=== PATIENT | female | born 2000 | race Caucasian/White ===

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

== ENCOUNTER → 2021-03-25 11:55 | Outpatient (BNVA) | payer MEDICAID, SELFPAY | PROVIDERS: PCP Family Medicine; Visit Provider Obstetrics & Gynecology | DX: N93.9 Abnormal uterine and vaginal bleeding, unspecified (principal) | CPT/HCPCS: 84439; 84443; 84481; 84702; 85025 ==

== ENCOUNTER → 2021-03-26 15:53 | Outpatient (BNVA) | payer MEDICAID, SELFPAY | PROVIDERS: PCP Family Medicine; Visit Provider Obstetrics & Gynecology | DX: N93.9 Abnormal uterine and vaginal bleeding, unspecified (principal) | CPT/HCPCS: 76830 ==

== ENCOUNTER → 2021-04-07 10:05 | Outpatient (BNVA) | payer MEDICAID, SELFPAY | PROVIDERS: PCP Family Medicine; Referring Provider Obstetrics & Gynecology; Visit Provider Internal Medicine | DX: E05.90 Thyrotoxicosis, unspecified without thyrotoxic crisis or storm (principal); R74.01 Elevation of levels of liver transaminase levels; E11.9 Type 2 diabetes mellitus without complications; N93.9 Abnormal uterine and vaginal bleeding, unspecified | CPT/HCPCS: 99204 ==

== ENCOUNTER 2021-04-07 11:55 | Outpatient (CLI) | payer MEDICAID, SELFPAY ==
[2021-04-07 13:00] LABS: Alanine Aminotransferase 106 U/L (0-33); Albumin Level 4.4 g/dL (3.5-5.2); Alkaline Phosphatase 60 IU/L (35-105); Anion Gap 18.8 (5-19); Aspartate Amino Transferase 76 U/L (0-32); Blood Urea Nitrogen 7 mg/dL (6-20); Calcium 10.1 mg/dL (8.5-10.5); Carbon Dioxide 23 mmol/L (22-29); Chloride 99 mmol/L (98-107); Free T4 Free Thyroxine 1.16 ng/dL (0.82-1.77); Globulin 3.7 g/dL (1.3-4.6); Glomerular Filtration Rate 127.5 mL/min (90-130); Glucose 101 mg/dL (65-115); Osmolality Calculated 282 mOsm/kg (285-295); Potassium 3.8 mmol/L (3.5-5.1); Sodium 137 mmol/L (136-145); Thyroid Stimulating Hormone 2.69 uIU/mL (0.27-4.20); Total Bilirubin 0.3 mg/dL (0.15-1.2); Total Protein 8.1 g/dL (6.6-8.7)
[2021-04-08 08:47] LABS: T3 Total 164 ng/dL (86-192)
[2021-04-08 14:37] LABS: Thyroglobulin AB 3 IU/mL (< or = 1); Thyroid Peroxidase Antobodies 30 IU/mL (<9)
[2021-04-12 16:03] LABS: TSH Receptor Binding Antibody <1.00 IU/L (< OR = 2.00)
== END 2021-04-07 11:56 | disposition home or self-care (01) ==
LOC: LAB 12:02
PROVIDERS: PCP Family Medicine; Visit Provider Internal Medicine
DX: E05.90 Thyrotoxicosis, unspecified without thyrotoxic crisis or storm (principal); E11.9 Type 2 diabetes mellitus without complications; R74.01 Elevation of levels of liver transaminase levels
CPT/HCPCS: 36415; 80053; 83516; 84439; 84443; 84480; 86376; 86800

== ENCOUNTER 2021-04-29 09:04 | Outpatient (CLI) | payer MEDICAID, SELFPAY ==
[2021-04-29 09:56] LABS: Free T4 Free Thyroxine 0.65 ng/dL (0.82-1.77); Thyroid Stimulating Hormone 74.14 uIU/mL (0.27-4.20)
[2021-04-30 11:19] LABS: T3 Total 107 ng/dL (86-192)
== END 2021-04-29 09:05 | disposition home or self-care (01) ==
PROVIDERS: PCP Family Medicine; Visit Provider Internal Medicine
DX: E05.90 Thyrotoxicosis, unspecified without thyrotoxic crisis or storm (principal); E11.9 Type 2 diabetes mellitus without complications; R74.01 Elevation of levels of liver transaminase levels
CPT/HCPCS: 36415; 84439; 84443; 84480

== ENCOUNTER → 2021-05-07 11:08 | Outpatient (BNVA) | payer MEDICAID, SELFPAY | PROVIDERS: PCP Family Medicine; Visit Provider Internal Medicine | DX: E06.3 Autoimmune thyroiditis (principal); E03.8 Other specified hypothyroidism; E04.9 Nontoxic goiter, unspecified; R74.01 Elevation of levels of liver transaminase levels | CPT/HCPCS: 99214 ==

== ENCOUNTER 2021-05-07 11:52 | Outpatient (CLI) | payer MEDICAID, SELFPAY ==
[2021-05-07 16:03] LABS: Free T4 Free Thyroxine 0.75 ng/dL (0.82-1.77)
== END 2021-05-07 11:53 | disposition home or self-care (01) ==
PROVIDERS: PCP Family Medicine; Visit Provider Internal Medicine
DX: E03.8 Other specified hypothyroidism (principal); E06.3 Autoimmune thyroiditis
CPT/HCPCS: 84439

== ENCOUNTER 2021-05-27 09:00 | Emergency (ER) | payer MEDICAID, SELFPAY ==
[2021-05-27 09:08] VITALS: BP 134/89; PULSE 92; RESP 16; TEMP 36.8; O2SAT 100; BMI 38.4
--- NOTE | 2021-05-27 11:46 | US_ITS ---
WS: [id number] Exam: US transvaginal [id number] Date/Time of Exam: 05/27/2021 12:13 PM Reason For Exam: pelvic pain/positive home preg No sign of intrauterine . The uterus is not enlarged and measures 3.3 x 4.4 x 7.3 cm. Endome trial thickness was 4 mm. Subcentimeter tiny follicle cysts in both ovaries. The ovaries demonstrate normal vascularity with color-flow Doppler. The left ovary measures 3.15 x 1.73 x 2.9 cm. The right o vary measures 3 x 2.4 x 2.5 cm. No adnexal mass or abnormal free fluid collection in the pelvis. US/US transvaginal [id number] IMPRESSION: 1. No intrauterine identified. 2. Sonographically normal-appearing uterus and ovaries. 3. No adnexal mass or abnormal free fluid collection. This exam would not completely exclude very early intrauterine or ect opic .
--- NOTE | 2021-05-27 11:53 | ED_ITS ---
HPI - Female Genitourinary General: Chief complaint: Urogenital-Female Stated complaint: CRAMPING & PELVIC PAIN/PREG Time Seen by Provider: 05/27/21 09:18 History of Present Illness: HPI Narrative: 21-year-old female who presents to the emergency room with complaints of dysuria and urgency for the last 2 days. She is also had some spotting. She states her last menstrual cycle was 922 and she has a positive test 2 days ago. MD elicited complaint: UTI Onset (ago): minute(s) Severity: mild Quality of pain: cramping (R pelvic pain) Exacerbating factors: none Relieving factors: none Associated symptoms: Deny abdominal pain, short of breath, fevers/chills, headache(s), nausea, rash, seizures, syncope, vaginal bleeding, vaginal discharge or weakness Treatment prior to arrival: none Patient : Yes Possible : at home test positive Date of Last Menstrual Period: 03/12/21 Review of Systems Card: Denies: syncope GI: Denies: abdominal pain or nausea : Denies: vaginal discharge Neuro: Denies: headache(s) PFSH ED PFSH: Medical History Asthma Diagnosed with asthma as a child, denies hospitalizations or intubations. symptoms are worse in spring and summer last had to use an inhaler when she was 14 years old. Diabetes mellitus Diagnosed in 2020 with an elevated hemoglobin A1c. Started on Metformin being managed by primary care provider. 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 Migraine Reports having migraine headaches since the age of 19-denies auras. This is managed by her primary care provider Dr. Nunez No pertinent past medical history Denies seizures, DVT/PE, hypertension PMD: Dr. Nunez Surgical History H/O local excision of skin lesion (08/28/20) Bilateral axilla for hidradenitis performed by Dr. Martinez at [facility] S/P adenoidectomy Adenoidectomy and tubes in her ears at the age of 11 Family History Mother Hypertension Grandmother Hypertension Maternal Heart disease maternal Grandfather Diabetes maternal Thyroid condition maternal Denies family history of Colon cancer Ovarian cancer Hyperlipidemia Breast cancer Uterine cancer Female Reproductive History: Date of last menstrual period: 03/12/21 Physical Exam Const: COMMON NORMALS: no acute distress GENERAL APPEARANCE: cooperative and comfortable ORIENTATION/CONSCIOUSNESS: Yes awake, Yes oriented to person, Yes oriented to place and Yes oriented to time HENMT: COMMON NORMALS: normocephalic, atraumatic and hearing grossly normal bilaterally HEAD & SCALP: normocephalic and atraumatic Resp: COMMON NORMALS: normal respiratory effort, No retractions, No use of accessory muscles and clear to auscultation bilaterally AUSCULTATION: clear to auscultation bilaterally Cardio: COMMON NORMALS: regular rate, regular rhythm and No murmurs present (Cardio) RATE: regular rate RHYTHM: regular rhythm GI: COMMON NORMALS: Soft to palpation and No hepatosplenomegaly present AUSCULTATION: Yes normoactive bowel sounds PALPATION: Yes Soft to palpation, No Tenderness to palpation present (GI), No Guarding due to palpation present (GI) and Yes No hepatosplenomegaly present : COMMON NORMALS: Yes no CVA tenderness BLADDER/KIDNEY EXAM: Yes no CVA tenderness SPECULUM EXAM - VAGINA: No vaginal bleeding OB/EXTERNAL & SPECULUM: No vaginal bleeding Back/Pelvis: COMMON NORMALS: no CVA tenderness Extremity: COMMON NORMALS: normal to inspection, capillary refill normal, no clubbing, cyanosis or edema, no calf tenderness and no pedal edema Neuro: SENSORIUM/ORIENTATION: Yes oriented to person, Yes oriented to place and Yes oriented to time Skin: COMMON NORMALS: no rashes or lesions noted GENERAL SKIN EXAM: no rashes or lesions noted Course Vital Signs: Vital signs: Vital Signs Temperature 98.2 F 05/27/21 09:08 Pulse Rate 87 05/27/21 13:22 Respiratory Rate 16 05/27/21 13:22 Blood Pressure 128/85 05/27/21 13:22 Pulse Oximetry 98 05/27/21 13:22 MDM - Female MDM Narrative: Medical decision making narrative: Simple cystitis on UA white counts not elevated beta-hCG is undetectable and her pelvic ultrasound is unremarkable. Discharge home follow-up with primary care started on oral antibiotics if worsens return Lab Data: Labs: Lab Results 05/27/21 05/27/21 05/27/21 11:28 11:44 11:44 WBC 11.7 10^3/uL 10^3 /uL (4.5-13.0) RBC 5.08 10^6/uL 10^6 /uL (4.1-5.3) Hgb 14.0 g/dL g/dL (11.5-15.3) Hct 43.9 % % (37.0-47.0) MCV 86.4 fl fl (81-99) MCH 27.6 pg L pg (28.0-34.0) MCHC 31.9 g/dL g/dL (30.0-36.0) RDW 13.6 % % (12.1-15.1) Plt Count 411 10^3/cmm H 10 ^3/cmm (130-400) MPV 11.3 fL H fL (7.4-10.4) Neut % (Auto) 76.0 % % Lymph % (Auto) 18.9 % % [place] % (Auto) 3.7 % % Eos % (Auto) 0.3 % % Baso % (Auto) 0.8 % % Neut # (Auto) 8.85 10^3/uL H 10 ^3/uL (1.8-8.0) Lymph # (Auto) 2.2 10^3/uL 10^3/ uL (1.5-6.5) [place] # (Auto) 0.4 10^3/uL 10^3/ uL (0.2-0.9) Eos # (Auto) 0.0 10^3/uL 10^3/ uL (0.0-0.8) Baso # (Auto) 0.1 10^3/uL 10^3/ uL (0.0-0.1) Nucleated RBC % (a uto) 0 % % Nucleated RBCs # 0.0 /100WBC /100W BC Sodium 136 mmol/L mmol/L (136-145) Potassium 4.3 mmol/L mmol/L (3.5-5.1) Chloride 98 mmol/L mmol/L (98-107) Carbon Dioxide 22 mmol/L mmol/L (22-29) Anion Gap 20.3 H (5-19) BUN 7 mg/dL mg/dL (6-20) Creatinine 0.5 mg/dL mg/dL (0.5-0.9) GFR Calculation 157.3 mL/min H mL /min (90-130) Glucose 89 mg/dL mg/dL (65-115) Calculated Osmolal ity 279 mOsm/kg L mOs m/kg (285-295) Calcium 9.3 mg/dL mg/dL (8.5-10.5) Total Bilirubin 0.4 mg/dL mg/dL (0.15-1.2) AST 88 U/L H U/L (0-32) ALT 71 U/L H U/L (0-33) Alkaline Phosphata se 58 IU/L IU/L (35-105) Total Protein 7.5 g/dL g/dL (6.6-8.7) Albumin 4.3 g/dL g/dL (3.5-5.2) Globulin 3.2 g/dL g/dL (1.3-4.6) HCG, Qual Urine Color Yellow (Yellow) Urine Appearance Cloudy (CLEAR) Urine pH 5 (5-7) Ur Specific [place] y 1.020 (1.005-1.030) Urine Protein Neg (Negative) Urine Glucose (UA) Norm (Normal) Urine Ketones Negative (Negative) Urine Blood 3+ H (Negative) Urine Nitrate Negative (Negative) Urine Bilirubin Neg (Negative) Urine Urobilinogen 1 mg/dL H mg/dL (Negative) Ur Leukocyte Inna ase 2+ H (Negative) Urine RBC 0-4 /hpf H /hpf (0-2) Urine WBC 25-40 /hpf H /hpf (0-5) Ur Squamous Epith Cells 15-25 /hpf H /hpf (0-5) Amorphous Sediment Not Reportable Urine Bacteria 2+ /hpf H /hpf (NONE) 05/27/21 11:44 WBC RBC Hgb Hct MCV MCH MCHC RDW Plt Count MPV Neut % (Auto) Lymph % (Auto) [place] % (Auto) Eos % (Auto) Baso % (Auto) Neut # (Auto) Lymph # (Auto) [place] # (Auto) Eos # (Auto) Baso # (Auto) Nucleated RBC % (a uto) Nucleated RBCs # Sodium Potassium Chloride Carbon Dioxide Anion Gap BUN Creatinine GFR Calculation Glucose Calculated Osmolal ity Calcium Total Bilirubin AST ALT Alkaline Phosphata se Total Protein Albumin Globulin HCG, Qual Negative (Negative) Urine Color Urine Appearance Urine pH Ur Specific Gravit y Urine Protein Urine Glucose (UA) Urine Ketones Urine Blood Urine Nitrate Urine Bilirubin Urine Urobilinogen Ur Leukocyte Inna ase Urine RBC Urine WBC Ur Squamous Epith Cells Amorphous Sediment Urine Bacteria Discharge Plan Discharge Patient Disposition: Home Clinical Impression: Cystitis Condition: Stable Prescriptions: New Macrobid 100 mg capsule 100 mg PO BID 7 Days Qty: 14 RF: 0 No Action tizanidine 4 mg capsule 4 mg PO BID PRN (Reason: Spasms) RF: 0 amitriptyline 25 mg tablet 25 mg PO BEDTIME PRN (Reason: Sleep) RF: 0 [place]a Fe 1.5/30 (28) 1.5 mg-30 mcg (21)/75 mg (7) tablet 1 tab PO DAILY RF: 0 metformin 500 mg tablet extended release 24 hr 500 mg PO QAM RF: 0 Junel FE 07/10 (28) 1 mg-20 mcg (21)/75 mg (7) tablet 1 tab PO DAILY RF: 0 levothyroxine 88 mcg tablet 88 mcg PO QAM RF: 0 Discharge Orders: Discharge ED (Routine); Ordered 05/27/21 Ordered By: Josiah Grande Referrals: Sebastian Nunez MD [Primary Care Provider] - Discharge Diet: Usual diet Discharge Activity: Increase activity as tolerated Patient Instructions: Opioid Safety Coding Level of Care Code ED Orthopedic Radiologic Technologist for Matteo Valerio Exam Problem Focused
[2021-05-27 12:15] LABS: Basophils # 0.1 10^3/uL (0.0-0.1); Basophils % 0.8 %; Eosinophils % 0.3 %; Hematocrit 43.9 % (37.0-47.0); Lymphocytes # 2.2 10^3/uL (1.5-6.5); Lymphocytes % 18.9 %; Mean Corpuscular HGB Conc 31.9 g/dL (30.0-36.0); Mean Corpuscular Hemoglobin 27.6 pg (28.0-34.0); Mean Corpuscular Volume 86.4 fl (81-99); Mean Platelet Volume 11.3 fL (7.4-10.4); Monocytes # 0.4 10^3/uL (0.2-0.9); Monocytes % 3.7 %; Neutrophils # 8.85 10^3/uL (1.8-8.0); Nucleated Red Blood Cells % 0 %; Platelet Count 411 10^3/cmm (130-400); Red Blood Count 5.08 10^6/uL (4.1-5.3); Red Cell Distribution Width 13.6 % (12.1-15.1); White Blood Count 11.7 10^3/uL (4.5-13.0)
[2021-05-27 12:25] LABS: Urine Appearance Cloudy (CLEAR); Urine Color Yellow (Yellow)
[2021-05-27 12:26] LABS: Add Urine Microscopic? YES; Bilirubin Urine Neg (Negative); Blood Urine 3+ (Negative); Glucose Urine UA Norm (Normal); Ketones Urine Negative (Negative); Leukocyte Esterase Urine 2+ (Negative); Nitrate Urine Negative (Negative); Protein Urine Neg (Negative); RBC Urine 0-4 /hpf (0-2); Squamous Epithelial Cell Urine 15-25 /hpf (0-5); Urobilinogen Urine 1 mg/dL (Negative); WBC Urine 25-40 /hpf (0-5); pH Urine 5 (5-7)
[2021-05-27 12:26] LABS: HCG, Serum Qual Negative (Negative)
[2021-05-27 12:27] LABS: Add Urine Culture? No; Bacteria Urine 2+ /hpf
[2021-05-27 12:36] LABS: Alanine Aminotransferase 71 U/L (0-33); Albumin Level 4.3 g/dL (3.5-5.2); Alkaline Phosphatase 58 IU/L (35-105); Anion Gap 20.3 (5-19); Aspartate Amino Transferase 88 U/L (0-32); Blood Urea Nitrogen 7 mg/dL (6-20); Calcium 9.3 mg/dL (8.5-10.5); Carbon Dioxide 22 mmol/L (22-29); Chloride 98 mmol/L (98-107); Globulin 3.2 g/dL (1.3-4.6); Glomerular Filtration Rate 157.3 mL/min (90-130); Glucose 89 mg/dL (65-115); Osmolality Calculated 279 mOsm/kg (285-295); Potassium 4.3 mmol/L (3.5-5.1); Sodium 136 mmol/L (136-145); Total Bilirubin 0.4 mg/dL (0.15-1.2); Total Protein 7.5 g/dL (6.6-8.7)
[2021-05-27 13:22] VITALS: BP 128/85; PULSE 87; RESP 16; O2SAT 98
== END 2021-05-27 13:24 | disposition home or self-care (01) ==
PROVIDERS: Emergency Provider Family Medicine; PCP Family Medicine
DX: N30.90 Cystitis, unspecified without hematuria (principal); E11.9 Type 2 diabetes mellitus without complications
CPT/HCPCS: 76830; 80053; 81001; 84702; 84703; 85025; 99283

== ENCOUNTER 2022-01-03 15:01 | Emergency (ER) | payer MEDICAID, SELFPAY ==
[2022-01-03 15:18] VITALS: BP 153/92; PULSE 109; RESP 16; TEMP 36.5; O2SAT 97
--- NOTE | 2022-01-03 18:08 | W.ED.FEMALGU ---
HPI - Female Genitourinary General: Chief complaint: Vaginal Bleeding Stated complaint: passed a large bloodclot Time Seen by Provider: 01/03/22 17:42 History of Present Illness: Patient is a 21-year-old female comes to the ED with abdominal pain and have a vaginal bleeding. Symptoms started today. Patient's last menstrual period was on December 10 and she usually has normal regular monthly periods. She is having heavy bleeding today but the most concerning an abnormal thing is that she has passed a couple large blood clots which is unusual for her. Patient is not currently on any control and says there is a chance that she could be . She has not taken any home test within the last couple days. She states that currently she is going through 1 heavy pad every 3-4 hours. Abdominal pain is located in the bilateral upper abdomen and it started at the same time vaginal bleeding began. Abdominal pain is described as a sharp pain and she states it is mild and does not need any pain meds. Patient endorses some dysuria. Denies any fever, nausea, vomiting, bowel symptoms or hematuria. Denies any past pregnancies. Associated symptoms: Reports abdominal pain; Deny headache(s) or nausea Date of Last Menstrual Period: 12/10/21 Review of Systems Const: Denies: fever(s), chills or fatigue Eyes: Denies: change in vision or eye discomfort ENMT: Denies: throat pain, odynophagia, nasal discharge or nasal congestion Card: Denies: chest pain, palpitations, edema, swelling of feet/ankles, dyspnea on exertion or orthopnea Resp: Denies: dyspnea, productive cough or non-productive cough GI: Reports: abdominal pain; Denies: nausea, vomiting, diarrhea, constipation or hematochezia : Reports: vaginal bleeding; Denies: flank pain, dysuria or hematuria Musc: Denies: neck pain, back pain or extremity swelling Skin/Breast: Denies: rash or new lesions Neuro: Denies: headache(s), numbness in extremities or weakness in extremities PFS ED PFSH: Medical History Asthma Diagnosed with asthma as a child, denies hospitalizations or intubations. symptoms are worse in spring and summer last had to use an inhaler when she was 14 years old. Diabetes mellitus Diagnosed in 2021 with an elevated hemoglobin A1c. Started on Metformin being managed by primary care provider. 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 Migraine Reports having migraine headaches since the age of 19-denies auras. This is managed by her primary care provider Dr. Nunez No pertinent past medical history Denies seizures, DVT/PE, hypertension PMD: Dr. Nunez Surgical History H/O local excision of skin lesion (08/28/20) Bilateral axilla for hidradenitis performed by Dr. Martinez at [facility] S/P adenoidectomy Adenoidectomy and tubes in her ears at the age of 11 Family History Mother Hypertension Grandmother Hypertension Maternal Heart disease maternal Grandfather Diabetes maternal Thyroid condition maternal Denies family history of Colon cancer Ovarian cancer Hyperlipidemia Breast cancer Uterine cancer Female Reproductive History: Date of last menstrual period: 12/10/21 Physical Exam Const: COMMON NORMALS: no acute distress, patient oriented x3 and alert GENERAL APPEARANCE: cooperative and comfortable HENMT: COMMON NORMALS: normocephalic HEAD & SCALP: normocephalic MOUTH: Normal oral and palatal mucosa present THROAT: posterior oropharynx normal and uvula midline Neck/C-Spine: COMMON NORMALS: supple GENERAL: Yes normal visual inspection Resp: COMMON NORMALS: normal respiratory effort, No retractions, No use of accessory muscles and clear to auscultation bilaterally AUSCULTATION: clear to auscultation bilaterally Cardio: COMMON NORMALS: regular rate, regular rhythm, S1 normal heart sound present, S2 normal heart sound present, No gallops present (Cardio), No clicks present (Cardio), No murmurs present (Cardio) and Peripheral pulses 2+ throughout RATE: regular rate RHYTHM: regular rhythm HEART SOUNDS: S1 normal heart sound present and S2 normal heart sound present PERIPHERAL PULSES: Peripheral pulses 2+ throughout GI: COMMON NORMALS: Normal to inspection, nondistended, normoactive bowel sounds present, Soft to palpation and no masses PALPATION: Yes Soft to palpation and Yes Tenderness to palpation present (GI) (Mild generalized abdominal tenderness) : COMMON NORMALS: Yes no CVA tenderness BLADDER/KIDNEY EXAM: Yes no CVA tenderness Back/Pelvis: COMMON NORMALS: no CVA tenderness Extremity: COMMON NORMALS: normal to inspection Neuro: COMMON NORMALS: patient oriented x3 and moves all extremities SENSORIUM/ORIENTATION: Yes alert Skin: GENERAL SKIN EXAM: dry skin Course Vital Signs: Vital signs: Vital Signs Temperature 97.7 F 01/03/22 15:18 Pulse Rate 99 01/03/22 21:24 Respiratory Rate 16 01/03/22 21:24 Blood Pressure 129/95 01/03/22 21:24 Pulse Oximetry 98 01/03/22 21:24 [facility] - Female Medical Decision Making Patient is a 21-year-old female comes to the ED with heavy vaginal bleeding. Symptoms started today. She has passed a couple large clots as well today. Denies any past pregnancies. She also endorses some mild abdominal pain as well. Last menstrual period on December 10 so she is close to the time for her to start her next menstrual period. Vitals are stable. Patient appears nontoxic and in no acute distress or pain. Rest of exam is benign. hCG negative and the rest of her labs were unremarkable. Ultrasound of pelvis showed no acute findings. Patient was diagnosed with abnormal vaginal bleeding and was discharged home. She was told to follow-up with her PCP in the next 7 to 10 days for reevaluation. Return to ED precautions given. Patient understood and agreed with plan. Lab Data I reviewed the patient's lab results. : 01/03/22 18:30 01/03/22 18:30 Radiology Impressions Pelvis Ultrasound 01/03/22 19:03 IMPRESSION: Normal ovarian arterial and venous vascular flow. No evidence ovarian torsion. IMPRESSION: 1. Grossly unremarkable endometrium. No discrete myoma or obvious sonographic signs of adenomyosis. 2. Bilateral tiny follicles which may represent normal physiologic variation versus polycystic ovary syndrome. Clinical correlation is suggested. No suspicious adnexal region masses or ovarian stromal edema/torsion on either side. Laboratory Results WBC 13.8 10^3/uL (4.5-13.0) H 01/03/22 18:30 RBC 5.42 10^6/uL (4.1-5.3) H 01/03/22 18:30 Hgb 14.6 g/dL (11.5-15.3) 01/03/22 18:30 Hct 45.4 % (37.0-47.0) 01/03/22 18:30 MCV 83.8 fl (81-99) 01/03/22 18:30 MCH 26.9 pg (28.0-34.0) L 01/03/22 18:30 MCHC 32.2 g/dL (30.0-36.0) 01/03/22 18:30 RDW 17.4 % (12.1-15.1) H 01/03/22 18:30 Plt Count 465 10^3/cmm (130-400) H 01/03/22 18:30 MPV 11.6 fL (7.4-10.4) H 01/03/22 18:30 Neut % (Auto) 70.7 % 01/03/22 18:30 Lymph % (Auto) 21.4 % 01/03/22 18:30 [place] % (Auto) 6.0 % 01/03/22 18:30 Eos % (Auto) 0.6 % 01/03/22 18:30 Baso % (Auto) 0.9 % 01/03/22 18:30 Neut # (Auto) 9.74 10^3/uL (1.8-8.0) H 01/03/22 18:30 Lymph # (Auto) 2.9 10^3/uL (1.5-6.5) 01/03/22 18:30 [place] # (Auto) 0.8 10^3/uL (0.2-0.9) 01/03/22 18:30 Eos # (Auto) 0.1 10^3/uL (0.0-0.8) 01/03/22 18: Baso # (Auto) 0.1 10^3/uL (0.0-0.1) 01/03/22 18:30 Nucleated RBC % (auto) 0 % 01/03/22 18:30 Nucleated RBCs # 0.0 /100WBC 01/03/22 18:30 Sodium Cancelled 01/03/22 18:30 Potassium Cancelled 01/03/22 18:30 Chloride Cancelled 01/03/22 18:30 Carbon Dioxide Cancelled 01/03/22 18:30 Anion Gap Cancelled 01/03/22 18:30 BUN Cancelled 01/03/22 18:30 Creatinine Cancelled 01/03/22 18:30 GFR Calculation Cancelled 01/03/22 18:30 Glucose Cancelled 01/03/22 18:30 Calculated Osmolality Cancelled 01/03/22 18:30 Calcium Cancelled 01/03/22 18:30 Total Bilirubin Cancelled 01/03/22 18:30 AST Cancelled 01/03/22 18:30 ALT Cancelled 01/03/22 18:30 Alkaline Phosphatase Cancelled 01/03/22 18:30 Total Protein Cancelled 01/03/22 18:30 Albumin Cancelled 01/03/22 18:30 Globulin Cancelled 01/03/22 18:30 Lipase Cancelled 01/03/22 18:30 HCG, Qual Negative (Negative) 01/03/22 18:30 Urine Color Red (Yellow) 01/03/22 18:30 Urine Appearance Cloudy (CLEAR) 01/03/22 18:30 Urine pH 6 (5-7) 01/03/22 18:30 Ur Specific [place] 1.025 (1.005-1.030) 01/03/22 18:30 Urine Protein 1+ (Negative) H 01/03/22 18:30 Urine Glucose (UA) Norm (Normal) 01/03/22 18:30 Urine Ketones Negative (Negative) 01/03/22 18:30 Urine Blood 3+ (Negative) H 01/03/22 18:30 Urine Nitrate Negative (Negative) 01/03/22 18:30 Urine Bilirubin 1+ (Negative) H 01/03/22 18:30 Urine Urobilinogen 1 mg/dL (Negative) H 01/03/22 18:30 Ur Leukocyte Esterase Trace (Negative) H 01/03/22 18:30 Urine RBC Too numerous to cnt /hpf (0-2) H 01/03/22 18:30 Urine WBC 5-10 /hpf (0-5) H 01/03/22 18:30 Ur Squamous Epith Cells 0-4 /hpf (0-5) H 01/03/22 18:30 Amorphous Sediment Not Reportable 01/03/22 18:30 Urine Bacteria Trace /hpf (NONE) 01/03/22 18:30 Urine Mucus 1+ /hpf 01/03/22 18:30 Discharge Plan Discharge Patient Disposition: Home Clinical Impression: Abnormal vaginal bleeding Condition: Stable Prescriptions: No Action tizanidine 4 mg capsule 4 mg PO BID PRN (Reason: Spasms) 0RF amitriptyline 25 mg tablet 25 mg PO BEDTIME PRN (Reason: Sleep) 0RF Junel FE 07/10 (28) 1 mg-20 mcg (21)/75 mg (7) tablet 1 tab PO DAILY Qty: 84 0RF metformin 500 mg tablet extended release 24 hr 500 mg PO QAM 0RF levothyroxine 88 mcg tablet 88 mcg PO QAM 0RF Rx Instructions: one hour before any medicine or food. Discharge Orders: Discharge ED (Routine); Ordered 01/03/22 Ordered By: Charlie Burks Referrals: Sebastian Nunez MD [Primary Care Provider] - Discharge Diet: Regular Discharge Activity: Increase activity as tolerated Activity Restrictions/Additional Instructions: Follow-up with medical provider as directed in the next 5 to 7 days for reevaluation. Take [id number] Tylenol or Motrin for any pain. Return to the ER or your medical provider if condition worsens. Please read and understand discharge instructions. Thank you for choosing [facility] for your healthcare needs today. Please realize this is an emergency room and that we are providing you with a medical screening exam and this may not be complete and all inclusive of all the testing and or work up that you may need to determine your ailment or severity of your illness. It is very important that you follow up as instructed or that you return to the Emergency Department should you have concerns or if your condition changes or worsens in any way. Coding Level of Care Code ED Steam Box Tender for Matteo Valerio Exam Comprehensive
[2022-01-03 18:40] LABS: Basophils # 0.1 10^3/uL (0.0-0.1); Basophils % 0.9 %; Eosinophils # 0.1 10^3/uL (0.0-0.8); Eosinophils % 0.6 %; Hematocrit 45.4 % (37.0-47.0); Hemoglobin 14.6 g/dL (11.5-15.3); Lymphocytes # 2.9 10^3/uL (1.5-6.5); Lymphocytes % 21.4 %; Mean Corpuscular HGB Conc 32.2 g/dL (30.0-36.0); Mean Corpuscular Hemoglobin 26.9 pg (28.0-34.0); Mean Corpuscular Volume 83.8 fl (81-99); Mean Platelet Volume 11.6 fL (7.4-10.4); Monocytes # 0.8 10^3/uL (0.2-0.9); Neutrophils # 9.74 10^3/uL (1.8-8.0); Neutrophils % 70.7 %; Nucleated Red Blood Cells % 0 %; Platelet Count 465 10^3/cmm (130-400); Red Blood Count 5.42 10^6/uL (4.1-5.3); Red Cell Distribution Width 17.4 % (12.1-15.1); White Blood Count 13.8 10^3/uL (4.5-13.0)
[2022-01-03 18:50] LABS: HCG Qualitative Urine. Negative (Negative)
[2022-01-03 18:54] LABS: Bilirubin Urine 1+ (Negative); Blood Urine 3+ (Negative); Glucose Urine UA Norm (Normal); Ketones Urine Negative (Negative); Leukocyte Esterase Urine Trace (Negative); Nitrate Urine Negative (Negative); Protein Urine 1+ (Negative); Specific Gravity, Urine 1.025 (1.005-1.030); Urine Appearance Cloudy (CLEAR); Urine Color Red (Yellow); Urobilinogen Urine 1 mg/dL (Negative); pH Urine 6 (5-7)
[2022-01-03 18:55] LABS: Add Urine Microscopic? YES; RBC Urine TOO NUMEROUS TO CNT /hpf (0-2)
[2022-01-03 18:56] LABS: Bacteria Urine TRACE /hpf; Mucus Urine 1+ /hpf; Squamous Epithelial Cell Urine 0-4 /hpf (0-5)
[2022-01-03 18:57] LABS: Add Urine Culture? Yes
--- NOTE | 2022-01-03 19:03 | USR_ITS ---
PROCEDURE INFORMATION: Exam: US Duplex Artery and Vein of the Abdominal and/or Reproductive Organs. Complete Ovaries Exam date and time: 01/03/2022 7:47 PM Age: 21 years old Clinical indication: Abdominal pain; Lower abdomen; Additional info: Heavy bleeding and passing large clots, pelvic tenderness TECHNIQUE: Imaging protocol: Real-time duplex ultrasound scan of the arterial and venous flow with color Doppler flow and spectral waveform analysis with image documentation. Complete duplex exam focused on the ovaries. Duplex exam was added to evaluate for torsion and other vascular conditions. COMPARISON: US abdomen complete* [id number] 04/01/2020 11:03 PM FINDINGS: Right ovary/adnexa: Normal duplex of the ovary. Normal Doppler waveforms and color flow. Arterial and venous flow are normal. No evidence of ovarian torsion. Left ovary/adnexa: Normal duplex of the ovary. Normal Doppler waveforms and color flow. Arterial and venous flow are normal. No evidence of ovarian torsion. PROCEDURE INFORMATION: Exam: US Pelvis, Transvaginal Exam date and time: 01/03/2022 7:47 PM Age: 21 years old Clinical indication: Abdominal pain; Lower abdomen; Additional info: Heavy bleeding and passing large clots, pelvic tenderness TECHNIQUE: Imaging protocol: Real-time transvaginal pelvic ultrasound with image documentation. Transvaginal imaging was used for better evaluation of the endometrium, adnexa, and/or cervix. COMPARISON: US transvaginal [id number] 05/27/2021 12:21 PM FINDINGS: Uterus: Uterus is anteverted measuring 7.4 by 3.2 x 4.6 cm. Endometrium measures up to 6 mm in thickness with no obvious discrete mass, or debris/fluid. Unremarkable cervix. No discrete uterine myoma or obvious imaging signs of adenomyosis. Right ovary/adnexa: Right ovary measures 4.1 by 3 x 3 cm. Bilateral tiny ovarian follicles with no dominant features, which may represent normal physiologic variation versus polycystic ovary syndrome. Clinical correlation is suggested. No suspicious adnexal region masses or ovarian stromal edema on either side. Left ovary/adnexa: Left ovary measures 3.4 by 2.4 x 2.8 cm. Intraperitoneal space: Transvaginal pelvic ultrasound images were performed. Transabdominal imaging was not performed. No significant cul-de-sac free fluid. US/US pelvic limited [id number] IMPRESSION: Normal ovarian arterial and venous vascular flow. No evidence ovarian torsion. IMPRESSION: 1. Grossly unremarkable endometrium. No discrete myoma or obvious sonographic signs of adenomyosis. 2. Bilateral tiny follicles which may represent normal physiologic variation versus polycystic ovary syndrome. Clinical correlation is suggested. No suspicious adnexal region masses or ovarian stromal edema/torsion on either side.
[2022-01-03 21:24] VITALS: BP 129/95; PULSE 99; RESP 16; O2SAT 98
== END 2022-01-03 21:25 | disposition home or self-care (01) ==
PROVIDERS: Emergency Medicine; Emergency Provider Physician Assistant; PCP Family Medicine
DX: N93.9 Abnormal uterine and vaginal bleeding, unspecified (principal); Z79.84 Long term (current) use of oral hypoglycemic drugs; E11.9 Type 2 diabetes mellitus without complications
CPT/HCPCS: 76857; 81001; 81025; 85025; 87086; 99284

== ENCOUNTER → 2022-03-06 13:26 | Outpatient (BNVA) | payer MEDICAID, SELFPAY | PROVIDERS: PCP Family Medicine; Visit Provider Registered Nurse Neonatal Intensive Care | DX: R30.0 Dysuria (principal); N39.0 Urinary tract infection, site not specified | CPT/HCPCS: 81000 ==

== ENCOUNTER → 2022-05-10 16:18 | Outpatient (BNVA) | payer MEDICAID, SELFPAY | PROVIDERS: PCP Family Medicine; Visit Provider Nurse Practitioner | DX: N39.0 Urinary tract infection, site not specified (principal) | CPT/HCPCS: 81000 ==

== ENCOUNTER → 2022-06-25 16:25 | Outpatient (BNVA) | payer MEDICAID, SELFPAY | PROVIDERS: PCP Family Medicine; Visit Provider Registered Nurse Neonatal Intensive Care | DX: R50.9 Fever, unspecified (principal); B34.9 Viral infection, unspecified | CPT/HCPCS: 87400 ==

== ENCOUNTER 2022-08-08 21:34 | Emergency (ER) | payer MEDICAID, SELFPAY ==
[2022-08-08 21:42] VITALS: BP 120/90; PULSE 102; RESP 14; TEMP 36.7; O2SAT 99
--- NOTE | 2022-08-08 21:46 | ED_ITS ---
HPI - General Adult General: Chief complaint: Dizziness Stated complaint: dizzy, high blood pressure/blood sugar Time Seen by Provider: 08/08/22 21:36 History of Present Illness: Ms. Arellano is a 22-year-old lady with history of diabetes and thyroid disorder presented to the emergency department for headache. She does endorse a history of migraines however these typically improve with medication which it has not this time. She endorses dizzy feeling and pain in the middle of her head. She notes also feeling like everything she is drinking today tastes sweet like concentrated drinks syrup. Intensity symptoms is moderate to severe. Course has persisted. No other specific ch anges in health, exacerbating, or alleviating factors identified. Onset (ago): hour(s) Severity: moderate Quality: aching and other Pain Consistency: constant Relieving factors: none Exacerbating factors: none Associated symptoms: Reports other Review of Systems General: Reports: 10 or more systems reviewed and unremarkable except in HPI and below PFSH ED PFSH: Medical History Asthma Diagnosed with asthma as a child, denies hospitalizations or intubations. symptoms are worse in spring and summer last had to use an inhaler when she was 14 years old. Diabetes mellitus Diagnosed in 2020 with an elevated hemoglobin A1c. Started on Metformin being managed by primary care provider. 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 Migraine Reports having migraine headaches since the age of 19-denies auras. This is managed by her primary care provider Dr. Nunez No pertinent past medical history Denies seizures, DVT/PE, hypertension PMD: Dr. Nunez Surgical History H/O local excision of skin lesion (08/28/20) Bilateral axilla for hidradenitis performed by Dr. Martinez at [facility] [place] S/P adenoidectomy Adenoidectomy and tubes in her ears at the age of 11 Family History Mother Hypertension Grandmother Hypertension Maternal Heart disease maternal Grandfather Diabetes maternal Thyroid condition maternal Denies family history of Colon cancer Ovarian cancer Hyperlipidemia Breast cancer Uterine cancer Social History Smoking and tobacco status: current every day smoker Physical Exam Const: COMMON NORMALS: patient oriented x3 and alert GENERAL APPEARANCE: cooperative and well developed HENMT: COMMON NORMALS: normocephalic and atraumatic HEAD & SCALP: normocephalic and atraumatic THROAT: posterior oropharynx normal Eye: COMMON NORMALS: conjunctivae normal CONJUNCTIVA: Yes conjunctivae normal SCLERA: sclerae normal Neck/C-Spine: COMMON NORMALS: supple and no meningeal signs GENERAL: Yes trachea midline Resp: COMMON NORMALS: normal respiratory effort EFFORT & INSPECTION: Yes able to speak in complete sentences Cardio: COMMON NORMALS: regular rate and regular rhythm RATE: regular rate RHYTHM: regular rhythm GI: COMMON NORMALS: Soft to palpation PALPATION: Yes Soft to palpation and No Tenderness to palpation present (GI) PERCUSSION: normal to percussion Extremity: GENERAL: Yes normal exam except as noted and No edema Neuro: COMMON NORMALS: patient oriented x3, CN's II-XII intact bilaterally, moves all extremities, no focal motor deficits and no sensory deficits noted SENSORIUM/ORIENTATION: Yes alert and No Orientation impaired MENINGEAL SIGNS: Yes no meningeal signs Psych: COMMON NORMALS: mental status grossly normal and Normal thought process present THOUGHT PROCESS: Normal thought process present Course Vital Signs: Vital signs: Vital Signs Temperature 98.0 F 08/08/22 21:42 Pulse Rate 91 08/08/22 23:40 Respiratory Rate 16 08/08/22 23:40 Blood Pressure 118/82 08/08/22 23:40 Pulse Oximetry 99 08/08/22 23:40 Oxygen Delivery Me thod 08/08/22 21:42 MDM - General Adult Medical Decision Making 22-year-old lady presenting with generalized illness including headache and taste changes. Nonfocal neurologic exam as noted above. Labs with hemoconcentration and mild leukocytosis. Dehydration on metabolic panel. Mild transaminitis discussed with patient. Squamous epithelial contamination on urinalysis. Patient feels significantly improved with migraine cocktail. She had resolution of taste abnormality and headache. Most likely etiology of patient's symptoms is complex headache secondary to headache disorder The results of ED evaluation were discussed with the patient including prescriptions and/or symptomatic cares (if applicable) including appropriate and responsible use, followup plan, and return precautions. The patient verbalized understanding and felt safe for discharge. Medical Records I reviewed the patient's medical records. Lab Data I reviewed the patient's lab results. 08/08/22 22:11 08/08/22 22:11 Laboratory Results WBC 12.1 10^3/uL (4.0-10.0) H 08/08/22 22:11 RBC 5.36 10^6/uL (4.1-5.3) H 08/08/22 22:11 Hgb 13.1 g/dL (11.5-15.3) 08/08/22 22:11 Hct 42.0 % (37.0-47.0) 08/08/22 22:11 MCV 78.4 fl (81-99) L 08/08/22 22:11 MCH 24.4 pg (28.0-34.0) L 08/08/22 22:11 MCHC 31.2 g/dL (30.0-36.0) 08/08/22 22:11 RDW 13.6 % (12.1-15.1) 08/08/22 22:11 Plt Count 468 10^3/cmm (130-400) H 08/08/22 22:11 MPV 10.7 fL (7.4-10.4) H 08/08/22 22:11 Neut % (Auto) 83.8 % 08/08/22 22:11 Lymph % (Auto) 11.2 % 08/08/22 22:11 [place] % (Auto) 2.9 % 08/08/22 22:11 Eos % (Auto) 0.6 % 08/08/22 22:11 Baso % (Auto) 1.2 % 08/08/22 22:11 Neut # (Auto) 10.11 10^3/uL (1.8-7.7) H 08/08/22 22:11 Lymph # (Auto) 1.4 10^3/uL (0.8-4.8) 08/08/22 22:11 [place] # (Auto) 0.4 10^3/uL (0.2-0.9) 08/08/22 22:11 Eos # (Auto) 0.1 10^3/uL (0.0-0.8) 08/08/22 22:11 Baso # (Auto) 0.2 10^3/uL (0.0-0.1) H 08/08/22 22:11 Nucleated RBC % (auto) 0 % 08/08/22 22:11 Nucleated RBCs # 0.0 /100WBC 08/08/22 22:11 Sodium 129 mmol/L (136-145) L 08/08/22 22:11 Potassium 3.7 mmol/L (3.5-5.1) 08/08/22 22:11 Chloride 91 mmol/L (98-107) L 08/08/22 22:11 Carbon Dioxide 26 mmol/L (22-29) 08/08/22 22:11 Anion Gap 15.7 (5-19) 08/08/22 22:11 BUN 7 mg/dL (6-20) 08/08/22 22:11 Creatinine 0.6 mg/dL (0.5-0.9) 08/08/22 22:11 GFR Calculation 126.2 mL/min (90-130) 08/08/22 22:11 Glucose 115 mg/dL (65-115) 08/08/22 22:11 POC Glucose 113 mg/dL (70-110) H 08/08/22 22:10 Calculated Osmolality 267 mOsm/kg (285-295) L 08/08/22 22:11 Calcium 9.7 mg/dL (8.5-10.5) 08/08/22 22:11 Magnesium 1.8 mg/dL (1.7-2.3) 08/08/22 22:11 Total Bilirubin 0.7 mg/dL (0.15-1.2) 08/08/22 22:11 AST 51 U/L (0-32) H 08/08/22 22:11 ALT 42 U/L (0-33) H 08/08/22 22:11 Alkaline Phosphatase 81 U/L (35-105) 08/08/22 22:11 Total Protein 7.5 g/dL (6.6-8.7) 08/08/22 22:11 Albumin 4.4 g/dL (3.5-5.2) 08/08/22 22:11 Globulin 3.1 g/dL (1.3-4.6) 08/08/22 22:11 TSH 0.68 uIU/mL (0.27-4.20) 08/08/22 22:11 Free T4 1.58 ng/dL (0.82-1.77) 08/08/22 22:11 HCG, Qual Negative (Negative) 08/08/22 22:11 Urine Color Yellow (Yellow) 08/08/22 22:11 Urine Appearance Hazy (CLEAR) A 08/08/22 22:11 Urine pH 6.5 (5-7) 08/08/22 22:11 Ur Specific [place] 1.020 (1.005-1.030) 08/08/22 22:11 Urine Protein Neg (Negative) 08/08/22 22:11 Urine Glucose (UA) Norm (Normal) 08/08/22 22:11 Urine Ketones 1+ (Negative) H 08/08/22 22:11 Urine Blood 3+ (Negative) H 08/08/22 22:11 Urine Nitrate Negative (Negative) 08/08/22 22:11 Urine Bilirubin Neg (Negative) 08/08/22 22:11 Urine Urobilinogen Neg mg/dL (Negative) 08/08/22 22:11 Ur Leukocyte Esterase 1+ (Negative) H 08/08/22 22:11 Urine RBC 10-15 /hpf (0-2) H 08/08/22 22:11 Urine WBC 10-15 /hpf (0-5) H 08/08/22 22:11 Ur Squamous Epith Cells 25-40 /hpf (0-5) H 08/08/22 22:11 Amorphous Sediment Not Reportable 08/08/22 22:11 Urine Bacteria 1+ /hpf (NONE) H 08/08/22 22:11 Urine Mucus Trace /hpf 08/08/22 22:11 Influenza Type A Ag negative (Negative) 08/08/22 21:18 Influenza Type B Ag negative (Negative) 08/08/22 21:18 SARS-CoV-2 Ag (Rapid) negative (Negative) 08/08/22 21:18 Discharge Plan Discharge Patient Disposition: Home Clinical Impression: Migraine, Transaminitis, Dizziness, Dehydration Condition: Stable Prescriptions: No Action tizanidine 4 mg capsule 4 mg PO BID PRN (Reason: Spasms) amitriptyline 25 mg tablet 25 mg PO BEDTIME PRN (Reason: Sleep) levothyroxine 88 mcg tablet 88 mcg PO QAM 90 Days Qty: 90 3RF Rx Instructions: one hour before any medicine or food. metformin 500 mg tablet extended release 24 hr 500 mg PO QAM Discharge Orders: Discharge ED (Routine); Ordered 08/08/22 Ordered By: Herberth Yusuf Referrals: Sebastian Nunez MD [Primary Care Provider] - Discharge Diet: Advance as tolerated and Clear Liquid Discharge Activity: Increase activity as tolerated Patient Instructions: Dehydration (ED), Migraine Headache (ED), Dizziness (ED) Activity Restrictions/Additional Instructions: Thank you for visiting the emergency department. You were seen and evaluated for dizziness, abnormal sensation, headache. The exact cause of your symptoms is unclear though likely related to dehydration and underlying headache disorder. We are pleased that you had improvement in the emergency department. Please follow-up with your primary care provider. Please ensure that you are staying hydrated. Return to the emergency department for uncontrolled symptoms, any new neurologic symptoms, or anything else that you are concerned about and feel needs emergency department evaluation. Coding Level of Care Code ED Director Of Sports Medicine for Matteo Valerio
[2022-08-08 22:17] LABS: Basophils # 0.2 10^3/uL (0.0-0.1); Basophils % 1.2 %; Eosinophils # 0.1 10^3/uL (0.0-0.8); Eosinophils % 0.6 %; Hemoglobin 13.1 g/dL (11.5-15.3); Lymphocytes # 1.4 10^3/uL (0.8-4.8); Lymphocytes % 11.2 %; Mean Corpuscular HGB Conc 31.2 g/dL (30.0-36.0); Mean Corpuscular Hemoglobin 24.4 pg (28.0-34.0); Mean Corpuscular Volume 78.4 fl (81-99); Mean Platelet Volume 10.7 fL (7.4-10.4); Monocytes # 0.4 10^3/uL (0.2-0.9); Monocytes % 2.9 %; Neutrophils # 10.11 10^3/uL (1.8-7.7); Neutrophils % 83.8 %; Nucleated Red Blood Cells % 0 %; Platelet Count 468 10^3/cmm (130-400); Red Blood Count 5.36 10^6/uL (4.1-5.3); Red Cell Distribution Width 13.6 % (12.1-15.1); White Blood Count 12.1 10^3/uL (4.0-10.0)
[2022-08-08] MEDS: ketorolac 30 mg/mL INJ 15 MG IVP (22:25)
[2022-08-08] MEDS: metoclopramide 5 mg/mL SDV 2 mL 10 MG IVP (22:25)
[2022-08-08] MEDS: diphenhydrAMINE 50 mg/mL SDV 1mL 12.5 MG IVP (22:26)
[2022-08-08] MEDS: sodium chloride 0.9% 1,000 ML 999 ML IV (22:26)
[2022-08-08 22:45] LABS: Alanine Aminotransferase 42 U/L (0-33); Albumin Level 4.4 g/dL (3.5-5.2); Alkaline Phosphatase 81 U/L (35-105); Anion Gap 15.7 (5-19); Aspartate Amino Transferase 51 U/L (0-32); Blood Urea Nitrogen 7 mg/dL (6-20); Calcium 9.7 mg/dL (8.5-10.5); Carbon Dioxide 26 mmol/L (22-29); Chloride 91 mmol/L (98-107); Creatinine Clr Calc Pharmacy 162.8271; Globulin 3.1 g/dL (1.3-4.6); Glomerular Filtration Rate 126.2 mL/min (90-130); Glucose 115 mg/dL (65-115); Magnesium 1.8 mg/dL (1.7-2.3); Osmolality Calculated 267 mOsm/kg (285-295); Potassium 3.7 mmol/L (3.5-5.1); Sodium 129 mmol/L (136-145); Thyroid Stimulating Hormone 0.68 uIU/mL (0.27-4.20); Total Bilirubin 0.7 mg/dL (0.15-1.2); Total Protein 7.5 g/dL (6.6-8.7)
[2022-08-08 22:48] LABS: HCG Qualitative Urine. Negative (Negative)
[2022-08-08 22:51] LABS: Bilirubin Urine Neg (Negative); Blood Urine 3+ (Negative); Glucose Urine UA Norm (Normal); Ketones Urine 1+ (Negative); Nitrate Urine Negative (Negative); Protein Urine Neg (Negative); Urine Appearance Hazy (CLEAR); Urine Color Yellow (Yellow); pH Urine 6.5 (5-7)
[2022-08-08 22:52] LABS: Add Urine Microscopic? YES; Leukocyte Esterase Urine 1+ (Negative); Urobilinogen Urine Neg (Negative)
[2022-08-08 23:00] LABS: Influenza A by IFA negative (Negative); Influenza B by IFA negative (Negative); SARS Covid-2 Antigen negative (Negative)
[2022-08-08 23:02] LABS: Add Urine Culture? No; Bacteria Urine 1+ /hpf; Mucus Urine TRACE /hpf; Squamous Epithelial Cell Urine 25-40 /hpf (0-5)
[2022-08-08 23:40] VITALS: BP 118/82; PULSE 91; RESP 16; O2SAT 99
[2022-08-09 01:02] LABS: Free T4 Free Thyroxine 1.58 ng/dL (0.82-1.77)
[2022-08-09 20:56] LABS: Glucose Point of Care 113 mg/dL (70-110)
== END 2022-08-08 23:40 | disposition home or self-care (01) ==
PROVIDERS: Emergency Provider Emergency Medicine; PCP Family Medicine
DX: R42 Dizziness and giddiness (principal); G43.909 Migraine, unspecified, not intractable, without status migrainosus; R74.01 Elevation of levels of liver transaminase levels; E86.0 Dehydration; Z20.822 Contact with and (suspected) exposure to COVID-19; F17.210 Nicotine dependence, cigarettes, uncomplicated; E11.9 Type 2 diabetes mellitus without complications
CPT/HCPCS: 36416; 80053; 81001; 81025; 82962; 83735; 84439; 84443; 85025; 87426; 87804; 96374; 96375; 99284; J1200; J1885; J2765; J7030

== ENCOUNTER → 2022-10-05 16:40 | Outpatient (BNVA) | payer MEDICAID, SELFPAY | PROVIDERS: PCP Family Medicine; Visit Provider Registered Nurse Neonatal Intensive Care | DX: M79.642 Pain in left hand (principal) | CPT/HCPCS: 73130 ==

== ENCOUNTER 2023-01-04 14:23 | Emergency (ER) | payer OTHER, MEDICAID, SELFPAY ==
[2023-01-04] VITALS (8 sets, daily range): BP systolic 124–160; BP diastolic 73–112; PULSE 77–125; RESP 16–29; TEMP 36.8; O2SAT 96–99; BMI 36.3
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
[2023-01-04 17:54] LABS: Bilirubin Urine Neg (Negative); Blood Urine 2+ (Negative); Glucose Urine UA Norm (Normal); Ketones Urine 1+ (Negative); Nitrate Urine Negative (Negative); Protein Urine Trace (Negative); Specific Gravity, Urine 1.025 (1.005-1.030); Urine Appearance Clear (CLEAR); Urine Color Dark Yellow (Yellow); pH Urine 6 (5-7)
[2023-01-04 17:55] LABS: Add Urine Culture? No; Add Urine Microscopic? YES; Amorphous Sediment Urine 1+ /hpf; Bacteria Urine TRACE /hpf; Leukocyte Esterase Urine Negative (Negative); Squamous Epithelial Cell Urine 0-4 /hpf (0-5); Urobilinogen Urine Norm (Negative)
[2023-01-04 18:15] LABS: Blood Urea Nitrogen 7 mg/dL (6-20); Total Bilirubin 0.2 mg/dL (0.15-1.2)
[2023-01-04 18:23] LABS: Basophils # 0.1 10^3/uL (0.0-0.1); Basophils % 0.8 %; Eosinophils % 0.2 %; Hematocrit 42.4 % (37.0-47.0); Hemoglobin 13.4 g/dL (11.5-15.3); Lymphocytes # 1.9 10^3/uL (0.8-4.8); Lymphocytes % 10.8 %; Mean Corpuscular HGB Conc 31.6 g/dL (30.0-36.0); Mean Corpuscular Hemoglobin 25.7 pg (28.0-34.0); Mean Corpuscular Volume 81.4 fl (81-99); Monocytes # 0.7 10^3/uL (0.2-0.9); Monocytes % 3.9 %; Neutrophils # 14.35 10^3/uL (1.8-7.7); Neutrophils % 83.9 %; Nucleated Red Blood Cells % 0 %; Platelet Count 483 10^3/cmm (130-400); Red Blood Count 5.21 10^6/uL (4.1-5.3); Red Cell Distribution Width 14.4 % (12.1-15.1); White Blood Count 17.1 10^3/uL (4.0-10.0)
[2023-01-04 18:54] LABS: Alanine Aminotransferase 35 U/L (0-33); Anion Gap 20.8 (5-19); Aspartate Amino Transferase 53 U/L (0-32); Carbon Dioxide 20 mmol/L (22-29); Chloride 96 mmol/L (98-107); Glomerular Filtration Rate 126.2 mL/min (90-130); Osmolality Calculated 274 mOsm/kg (285-295); Potassium 3.8 mmol/L (3.5-5.1); Sodium 133 mmol/L (136-145)
[2023-01-04 18:59] LABS: HCG, Serum Qual Negative (Negative)
[2023-01-04 18:59] LABS: Calcium 10.1 mg/dL (8.5-10.5); Glucose 97 mg/dL (65-115)
[2023-01-04 19:00] LABS: Albumin Level 4.4 g/dL (3.5-5.2); Alkaline Phosphatase 46 U/L (35-105); Total Protein 7.2 g/dL (6.6-8.7)
[2023-01-04 19:02] LABS: Globulin 2.8 g/dL (1.3-4.6)
[2023-01-04] MEDS: morphine 4 mg/mL SDV 1 mL IVP (19:10)
[2023-01-04] MEDS: ondansetron 2 mg/ML SDV 2 mL 4 MG IVP (19:17)
[2023-01-04] MEDS: iohexol 350 mg/mL 500 mL Btl (per mL) IV (19:31)
== END 2023-01-04 20:24 | disposition home or self-care (01) ==
PROVIDERS: Family Medicine; Emergency Provider Emergency Medicine; PCP Family Medicine
DX: Z04.1 Encounter for examination and observation following transport accident (principal); Z79.84 Long term (current) use of oral hypoglycemic drugs; F17.210 Nicotine dependence, cigarettes, uncomplicated; E11.9 Type 2 diabetes mellitus without complications; S30.811A Abrasion of abdominal wall, initial encounter; V89.2XXA Person injured in unspecified motor-vehicle accident, traffic, initial encounter
CPT/HCPCS: 36415; 70450; 71260; 72125; 74177; 80053; 81001; 84703; 85025; 96374; 96375; 99285; J2270; J2405; Q9967